=== PATIENT | male | born 1960 | race Hispanic/Latino ===

== ENCOUNTER 2019-12-29 11:33 | Observation (INO) | payer OTHER ==
[~2019-12-29] VITALS: Ht 175.3 cm; Wt 102.1 kg
--- NOTE | 2019-12-29 12:13 | Emergency Department Note ---
History of Present Illnes History of Present Illness Chief Complaint: COVID PUI History of Present Illness This is a 59 year old male with 4 mos of dyspnea and PRESCOTT . Historian: Patient Arrival Mode: Car Past Medical/Family History Physician Review I have reviewed the patient's past medical and family history. Any updates have been documented here. Past Medical History Recent Fever: No Clinical Suspicion of Infectio: No New/Unexplained Change in Ment: No Past Medical History: Hypertension, Diabetes, Hyperlipedemia, Chronic Back Pain Past Surgical History: Knee Replacement Social History Physically hurt or threatened: No Physical Exam Related Data Allergies: Coded Allergies: No Known Drug Allergies (Verified Allergy, Unknown, 04/28/09) Triage Vital Signs Vital Signs Date Time Temp Pulse Resp B/P (MAP) Pulse Ox O2 Delivery O2 Flow Rate FiO2 12/29/19 11:35 97.5 75 18 174/91 98 Room Air Physical Exam CONSTITUTIONAL HENT EYES NECK PULMONARY CARDIOVASCULAR GASTROINTESTINAL GENITOURINARY SKIN MUSCULOSKELETAL NEUROLOGICAL PSYCHOLOGICAL Results Imaging Imaging results reviewed: Yes Impressions [place] [address] Patient Name: CONNIE ALFARO MR #: [id number] : 1960 Age/Sex: 59/M Req #: [id number] Adm Physician: Ordered by: SIMONA ANTONIO DO Report #: [id number] Location: ER Room/Bed: Procedure: [id number] DX/CHEST SINGLE (PORTABLE) Exam Date: 12/29/19 Exam Time: 1225 REPORT STATUS: Signed TECHNIQUE: Frontal view of the chest. INDICATION: ^ERMD ORDER ^[id number] ^1225 ^Y COMPARISON: None DISCUSSION: Limited evaluation due to portable technique. Lines and hardware: None Heart and mediastinum: Cardiomediastinal silhouette and pulmonary vascularity are within normal limits within the limitations portable technique and low lung volumes. Trachea projects midline. Lungs and pleura: Low lung volumes limits evaluation. Negative for focal consolidation, large effusion or pneumothorax. Soft tissues and bones: No acute abnormality. IMPRESSION: Limited evaluation due to low lung volumes and technique. Negative for acute intrathoracic process. Signed by: Isabel Cortes MD on 12/29/2019 12:43 PM Dictated By: ISABEL CORTES MD 1243 Transcribed By: LUIZA on 12/29/19 1243 COPY TO: SIMONA ANTONIO DO~ Procedures 12 Lead ECG Interpretation ECG Interpretation : ECG: ECG 1 Imaging Technologist: Interpreted by ED physician Date: Dec 29, 2019 Time: 18:57 Prior ECG tracings: reviewed Rhythm: sinus rhythm Rate: normal BPM: 84 QRS axis: normal ST segments normal: Yes T waves normal: Yes Clinical Impression: normal ECG Assessment & Plan Medical Decision Making MDM Diff Dx : CHF, PNA, ACS, COVID-19 infection Last Vital Signs Date Time Temp Pulse Resp B/P (MAP) Pulse Ox O2 Delivery O2 Flow Rate FiO2 12/29/19 11:35 97.5 75 18 174/91 98 Room Air SIMONA ANTONIO DO Dec 29, 2019 12:13
[2019-12-29] MEDS ORDERED: ASPIRIN 81 MG CHEW TAB PO ONE ×2 (12:15→15:00)
--- NOTE | 2019-12-29 12:46 | Diagnostic Imaging Report ---
TECHNIQUE: Frontal view of the chest. INDICATION: ^ERMD ORDER ^[id number] ^1225 ^Y COMPARISON: None DISCUSSION: Limited evaluation due to portable technique. Lines and hardware: None Heart and mediastinum: Cardiomediastinal silhouette and pulmonary vascularity are within normal limits within the limitations portable technique and low lung volumes. Trachea projects midline. Lungs and pleura: Low lung volumes limits evaluation. Negative for focal consolidation, large effusion or pneumothorax. Soft tissues and bones: No acute abnormality. IMPRESSION: Limited evaluation due to low lung volumes and technique. Negative for acute intrathoracic process. Signed by: Modesto Cortes MD on 12/29/2019 12:43 PM
[2019-12-29 12:58] LABS: BASOPHILS % 0.4 % (0.0-1.0); EOSINOPHILS # (AUTO) 0.1 (0.0-0.4); EOSINOPHILS % 1.3 % (0.0-6.0); HEMATOCRIT 47.8 % (38.2-49.6); LYMPHOCYTES # (AUTO) 1.9 (1.0-3.2); LYMPHOCYTES % 24.6 % (18.0-39.1); MEAN CORPUSCULAR HEMOGLOBIN 30.6 pg (28-32); MEAN CORPUSCULAR HGB CONC 33.5 g/dL (31-35); MEAN CORPUSCULAR VOLUME 91.4 fL (81-99); MONOCYTES # (AUTO) 0.5 (0.2-0.8); MONOCYTES % 6.9 % (4.4-11.3); NEUTROPHILS # (AUTO) 5.1 (2.1-6.9); NEUTROPHILS % 66.1 % (38.7-80.0); PLATELET COUNT 226 x10e3/uL (140-360); RED BLOOD COUNT 5.23 x10e6/uL (4.3-5.7); RED CELL DISTRIBUTION WIDTH 12.7 % (11.7-14.4)
[2019-12-29 13:23] LABS: ALANINE AMINOTRANSFERASE 36 IU/L (0-55); ALBUMIN 4.7 g/dL (3.5-5.0); ALBUMIN/GLOBULIN RATIO 1.5 (0.8-2.0); ALKALINE PHOSPHATASE 36 IU/L (40-150); ANION GAP 12.8 mmol/L (8-16); BLOOD UREA NITROGEN 19 mg/dL (7-26); BUN/CREATININE RATIO 16 (6-25); CALCIUM 9.2 mg/dL (8.4-10.2); CARBON DIOXIDE 25 mmol/L (22-29); CHLORIDE 106 mmol/L (98-107); CREATINE KINASE 93 IU/L (30-200); CREATININE, SERUM 1.17 mg/dL (0.72-1.25); EST GLOMERULAR FILTRATION RATE > 60 ML/MIN (60-); GLUCOSE 149 mg/dL (74-118); POTASSIUM 3.8 mmol/L (3.5-5.1); SODIUM 140 mmol/L (136-145)
[2019-12-29] MEDS ORDERED: ENOXAPARIN SODIUM INJ 100 MG/ML SYR SC STA (14:44)
[2019-12-29] MEDS ORDERED: MORPHINE SULFATE 2 MG/ML SYR 1ML IV PRN (15:00)
[2019-12-29] MEDS ORDERED: ONDANSETRON HCL INJ 2MG/ML 2ML 2 MG/ML VIAL IV PRN ×2 (15:00→16:00)
--- NOTE | 2019-12-29 15:12 | Diagnostic Imaging Report ---
EXAMINATION: CT of the chest with contrast, PE protocol. TECHNIQUE: Spiral CT images of the chest were performed from the lung apices through the level of the adrenal glands after the IV administration of 100 cc of Omnipaque 370. Thin section reconstructions were obtained with special concentration on the pulmonary arteries. Coronal and sagittal reformatted images were also performed COMPARISON: Portable chest 12/29/2019 CLINICAL HISTORY:Shortness of breath for 4 months DISCUSSION: Lungs: Filling defects are noted in multiple segmental and subsegmental branches of the right upper (series 2, image 31), right middle (series 2, image 44), right lower (series 2, image 47), left upper (series 2, image 37 and sagittal image 108), and left lower (series 2, image 46 and 60) lobes. No saddle embolus. No filling defects are noted within the main right or left pulmonary arteries. Linear opacities in the anteromedial right upper lobe (series 3, image 35), right lower lobe (series 3, image 45), and left lower lobe (series 3, image 76), which may represent subsegmental atelectasis or scarring. No consolidation, or pulmonary infarcts. 4-5 mm pulmonary nodule in the lateral right middle lobe (series 3, image 44). No other pulmonary nodules. Airways: Airways are clear, without other bronchial lesions. Pleura: <There is no evidence of pleural effusion or pneumothorax.> Heart and mediastinum: Thyroid is unremarkable. Heart size is normal. No pericardial effusion. Atherosclerotic calcification of the coronary arteries. 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 The right carotid, left carotid and left subclavian arteries normally arise from the aortic arch. Lymph nodes: No mediastinal, hilar or axillary adenopathy. Abdomen: Visualized portions of the liver show marked diffusely decreased attenuation consistent with diffuse steatosis. No focal lesions. Visualized spleen, pancreas and bowel are grossly unremarkable. Cholecystectomy clips. The adrenal glands are not visualized. There is a partially visualized fat and soft tissue complex mass in the expected location of the right adrenal gland which measures approximately 10.4 x 9.5 cm (series 2, image 106). An approximately 3.4 x 3.0 cm well-circumscribed predominantly fat-containing mass is noted in the expected location of the left adrenal gland (series 2, image 105). Bones and soft tissues: No aggressive lytic or suspicious focal sclerotic lesions. Mildly degenerated discs in the thoracic spine. Deformity of the posterior aspect of the right ninth, 10th and 11th ribs consistent with healed fractures (series 2, images 73, 86 and 99). Soft tissues are grossly unremarkable. IMPRESSION: 1. Multiple segmental and subsegmental pulmonary emboli in the right upper, right middle, right lower, left upper and left lower lobes. No saddle emboli. 2. Nonspecific 4-5 mm pulmonary nodule in the lateral right middle lobe. No other pulmonary nodules or masses. 3. Findings in the expected location of bilateral adrenal glands are highly suspicious for myelolipomas. A less likely consideration includes retroperitoneal liposarcoma. Recommend contrast-enhanced CT abdomen and pelvis for further evaluation. 4. Diffuse hepatic steatosis. 5. 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 Correlate for dysphagia 6. Findings discussed with Dr. Johnson 12/29/2019 at 1445 hours Signed by: Dr. Vick Campbell M.D. on 12/29/2019 3:08 PM
[2019-12-29] MEDS ORDERED: MORPHINE SULFATE INJ 4 MG/ML INJ 1ML IV PRN (15:15)
--- OUTSIDE RECORDS SUMMARY | 2019-12-29 15:19 | XMS REPORT | Clinical Summary ---
Author Author [facility] Organization [facility] Address Unknown Phone Unavailable Care Team Providers Care Travel Registered Nurse Icu Name Role Phone PCP Unavailable Allergies Comments Active Allergy Reactions Severity Noted Date No Known Drug Allergies 04/22/2012 Medications End Date Status Medication Sig Dispensed Refills Start Date Active insulin 70/30 NPH - Inject 30 0 REGULAR (HUMULIN 70/30) Units 100 unit/mL injection subcutaneousl y 2 times daily (before meals). Active LOVASTATIN OR Take by 0 mouth. Active blood glucose meter Use as 1 Kit 0 (PRECISION directed. 3 XTRA)Indications: Diabetes mellitus Active LANCETSIndications: Check glucose 1 Box 11 Diabetes mellitus 2-3 times a 3 day Active glucose blood test Check glucose 1 Box 11 04/22 (PRECISION XTRA) 2-3 times per 3 stripIndications: day Diabetes mellitus Active ibuprofen (MOTRIN) 800 mg Take 1 tablet 12 tablet 0 tabletIndications: Acute by mouth 6 pain of right knee every 8 hours as needed for Pain. Active traMADol (ULTRAM) 50 mg Take 1 tablet 12 tablet 0 tabletIndications: Acute by mouth 6 pain of right knee every 8 hours as needed for Pain. Active metFORMIN (GLUCOPHAGE) Take 2 120 tablet 0 500 mg tabletIndications: tablets by 6 Acute pain of right knee mouth 2 times daily (with meals). Active lisinopril-hydrochlorothi Take 1 tablet 30 tablet 0 azide (PRINZIDE, by mouth 6 ZESTORETIC) 20-25 mg per daily. tabletIndications: Acute pain of right knee Active glipiZIDE (GLUCOTROL) 5 Take 1 tablet 60 tablet 0 mg tabletIndications: by mouth 2 6 Medication refill times daily (before meals). Active Problems Problem Noted Date Acute pain of right knee 08/12/2015 Diabetes mellitus Hypertension Hyperlipidemia Family History Medical History Relation Name Comments Arthritis Father Diabetes Father Heart Father Hypertension Father Stroke Father Relation Name Status Comments Brother Alive 7 Father Mother Alive Sister Alive 5 Social History Date Tobacco Use Types Packs/Day Years Used Passive Smoke Exposure - 10 Never Smoker Drinks/Week oz/Week Comments Alcohol Use Not Asked Sex Assigned at Date Recorded Not on file Industry Job Start Date Occupation Not on file Not on file Not on file Travel End Travel History Travel Start No recent travel history available. Last Filed Vital Signs Not on file Plan of Treatment Health Maintenance Due Date Last Done Comments DM HGBA1C (Yearly) 1960 DM Foot Exam (Yearly) 1980 DM Retinal Exam (Yearly) 1980 Colorectal Cancer Scrn 2012 Annual (FIT/FOBT) Age 50 to 75 IMM Influenza Seasonal 01/15/2020 01/15/2012Jan to June (>/= 19 yrs) Results Not on fileafter 12/28/2018 Insurance Type Payer Benefit Subscriber ID Effective Phone Address Plan / Dates Group [facility] SELF-PAY SELF-PAY xxxxxx 2015-3 [address] [place] [address] Guarantor Name Account Relation to Date of Phone Zackary wilson Address Type Patient STEWARTCONNIE MURPHY [place] Personal/F Head of 1960 [address] (Home) [place], [place] [address] (Self)
--- OUTSIDE RECORDS SUMMARY | 2019-12-29 15:19 | XMS REPORT | Continuity of Care Document ---
Author Author [facility] t Organization [facility] Address [address] [place] [phone] Phone Unavailable Care Team Providers Care Landfill Grader Name Role Phone DR ANDREA GERMAN Unavailable SIMONA ANTONIO Unavailable DR ANDREA GERMAN Unavailable Jeyson REYES Unavailable Problems Condition Name Condition Details Condition Category Status Onset Date Resolution Date Last Treatment Date Treating Clinician Comments Source Acute pain of right knee Acute pain of right knee Disease Acti ve 2015-08-12 00:00:00 [facility] Diabetes mellitus Diabetes mellitus Disease Active [facility] Hypertension Hypertension Disease Active [facility] Hyperlipidemia Hyperlipidemia Disease Active [facility] Allergies, Adverse Reactions, Alerts This patient has no known allergies or adverse reactions. Family History Family Member Diagnosis Comments Start Date Stop Date Source Natural father Arthritis [facility] father Heart [facility] Natural father Hypertension [facility] Natural father Stroke [facility] Social History Social Habit Start Date Stop Date Quantity Comments Source Sex Assigned At [facility] Alcohol intake 2012-04-22 00:00:00 2012-04-22 00:00:00 [facility] Smoking Status Start Date Stop Date Source Never smoker [facility] Medications Ordered Medication Name Filled Medication Name Start Date Stop Da te Current Medication? Ordering Clinician Indication Dosage Frequency Signature (SIG) Comments Components Source insulin 70/30 NPH - REGULAR (HUMULIN 70/30) 100 unit/mL inje ction 2015-08-12 09:20:08 Yes 30U Q.5D Inject 30 Units subcutaneously 2 times daily (before meals). [facility] LOVASTATIN OR 2015-08-12 09:20:08 Yes Take by mouth. [facility] ibuprofen (MOTRIN) 800 mg tablet 2015-08-12 00:00:00 Yes Acute pain of right knee 800mg Take 1 tablet by mouth every 8 hours as needed for Pain. [facility] traMADol (ULTRAM) 50 mg tablet 2015-08-12 00:00:00 Yes Acute pain of right knee 50mg Take 1 tablet by mouth every 8 hours as needed for Pain. [facility] metFORMIN (GLUCOPHAGE) 500 mg tablet 2015-08-12 00:00:00 Yes Acute pain of right knee 1000mg Take 2 tablets by mouth 2 times daily (with marc ls). [facility] lisinopril-hydrochlorothiazide (PRINZIDE, ZESTORETIC) 20-25 mg per tablet 2015-08-12 00:00:00 Yes Acute pain of right knee 1{tbl } QD Take 1 tablet by mouth daily. [facility] glipiZIDE (GLUCOTROL) 5 mg tablet 2015-08-12 00:00:00 Yes Medication refill 5mg Q.5D Take 1 tablet by mouth 2 times daily (before me als). [facility] blood glucose meter (PRECISION XTRA) 2012-04-22 00:00:00 Yes Diabetes mellitus Use as directed. [facility] ealth LANCETS 2012-04-22 00:00:00 Yes Diabetes mellitus Check glucose 2-3 times a day [facility] glucose blood test (PRECISION XTRA) strip 2012-04-22 00:00:0 0 Yes Diabetes mellitus Check glucose 2-3 times per day [facility] Procedures This patient has no known procedures. Plan of Care Planned Activity Planned Date Details Comments Source Future Scheduled Test 2020-01-15 00:00:00 IMM Influenza Seas onal Jan to June (>/= 19 yrs) [code = IMM Influenza Seasonal Jan to June (>/= 19 yrs)] [facility] Scheduled Test 2012 00:00:00 Screening for vamsi gnant neoplasm of colon (procedure) [code = 783391101] [facility] Scheduled Test 1980 00:00:00 DM Foot Exam (Year ly) [code = DM Foot Exam (Yearly)] [facility] Scheduled Test 1980 00:00:00 DM Retinal Exam (Y early) [code = DM Retinal Exam (Yearly)] [facility] Scheduled Test 1962 00:00:00 Hemoglobin A1c marc surement (procedure) [code = 10189481] [facility] Encounters Start Date/Time End Date/Time Encounter Type Admission Type [facility] Facility Care Department Encounter ID Source 2017-12-13 13:30:00 Inpatient ANDREA [facility] [id number] [facility] Results Test Description Test Time Test Comments Results Result Comments Source CT CHEST W 2019-12-29 14:42:00 [facility] [address] [address] Patient Name: CONNIE STEWART MR #: [id number] : 1960 Age/Sex: 59/M Req #: [id number] Adm Physician: Ordered by: SIMONA ANTONIO DO Report #: [id number] Location: ER Room/Bed: Procedure: [id number] CT/CT CHEST W Exam Date: 12/29/19 Exam Time: 1419 REPORT STATUS: Signed EXAMINATION: CT of the chest with contrast, PE protocol. TECHNIQUE: Spiral CT images of the chest were performed from the lung apices through the level of the adrenal glands after the IV administration of 100 cc of Omnipaque 370. Thin section reconstructions were obtained with special concentration on the pulmonary arteries. Coronal and sagittal reformatted images were also performed COMPARISON: Portable chest 12/29/2019 CLINICAL HISTORY:Shortness of breath for 4 months DISCUSSION: Lungs: Filling defects are noted in multiple segmental and subsegmental branches of the right upper (series 2, image 31), right middle (series 2, image 44), right lower (series 2, image 47), left upper (series 2, image 37 and sagittal image 108), and left lower (series 2, image 46 and 60) lobes. No saddle embolus. No filling defects are noted within the main right or left pulmonary arteries. Linear opacities in the anteromedial right upper lobe (series 3, image 35), right lower lobe (series 3, image 45), and left lower lobe (series 3, image 76), which may represent subsegmental atelectasis or scarring. No consolidation, or pulmonary infarcts. 4-5 mm pulmonary nodule in the lateral right middle lobe (series 3, image 44). No other p ulmonary nodules. Airways: Airways are clear, without other bronchial lesions. Pleura: <There is no evidence of pleural effusion or pneumothorax.> Heart and mediastinum: Thyroid is unremarkable. Heart size is normal. No pericardial effusion. Atherosclerotic calcification of the coronary arteries. 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 The right carotid, left carotid and left subclavian arteries normally arise from the aortic arch. Lymph nodes: No mediastinal, hilar or axillary adenopathy. Abdomen: Visualized portions of the liver show marked diffusely decreased attenuation consistent with diffuse steatosis. No focal lesions. Visualized spleen, pancreas and bowel are grossly unremarkable. Cholecystectomy clips. The adrenal glands are not visualized. There is a partially visualized fat and soft tissue complex mass in the expected location of the right adrenal gland which measures approximately 10.4 x 9.5 cm (series 2, image 106). An approximately 3.4 x 3.0 cm well-circumscribed predominantly fat-containing mass is noted in the expected location of the left adrenal gland (series 2, image 105). Bones and soft tissues: No aggressive lytic or suspicious focal sclerotic lesions. Mildly degenerated discs in the thoracic spine. Deformity of the posterior aspect of the right ninth, 10th and 11th ribs consistent with healed fractures (series 2, images 73, 86 and 99). Soft tissues are grossly unremarkable. IMPRESSION: 1. Multiple segmental and subsegmental pulmonary emboli in the right upper, right middle, right lower, left upper and left lower lobes. No saddle emboli. 2. Nonspecific 4-5 mm pulmonary nodule in the lateral right middle lobe. No other pulmonary nodules or masses. 3. Findings in the expected location of bilateral adrenal glands are highly suspicious for myelolipomas. A less likely consideration includes retroperitoneal liposarcoma. Recommend contrast- enhanced CT abdomen and pelvis for further evaluation. 4. Diffuse hepatic steatosis. 5. 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 Correlate for dysphagia 6. Findings discussed with Dr. Antonio 12/29/2019 at 1445 hours Signed by: Dr. Aiyana Campbell M.D. on 12/29/2019 3:08 PM Dictated By: AIYANA CAMPBELL MD 1508 Transcribed By: LUIZA on 12/29/19 150 COPY TO: SIMONA ANTONIO DO CHEST SINGLE (PORTABLE) 2019-12-29 12:42:00 [place] [address] Patient Name: CONNIE STEWART MR #: [id number] : 1960 Age/Sex: 59/M Req #: [id number] Adm Physician: Ordered by: SIMONA ANTONIO DO Report #: [id number] Location: ER Room/Bed: Procedure: [id number] DX/CHEST SINGLE (PORTABLE) Exam Date: 12/29/19 Exam Time: 1225 REPORT STATUS: Signed TECHNIQUE: Frontal view of the chest. INDICATION: ERMD ORDER [id number] 1225 Y COMPARISON: None DISCUSSION: Limited evaluation due to portable technique. Lines and hardware: None Heart and mediastinum: Cardiomediastinal silhouette and pulmonary vascularity are within normal limits within the limitations portable technique and low lung volumes. Trachea projects midline. Lungs and pleura: Low lung volumes limits evaluation. Negative for focal consolidation, large effusion or pneumothorax. Soft tissues and bones: No acute abnormality. IMPRESSION: Limited evaluation due to low lung volumes and technique. Negative for acute intrathoracic process. Signed by: Isabel Cortes MD on 12/29/2019 12:43 PM Dictated By: ISABEL CORTES MD 1243 Transcribed By: LUIZA on 12/29/19 1243 COPY TO: SIMONA ANTONIO DO
--- NOTE | 2019-12-29 15:45 | NUR ---
Patient awake and alert, no chest pain or SOB at this time. VSS
[2019-12-29] MEDS ORDERED: CLONIDINE HCL 0.2 MG TAB PO PRN (16:00)
[2019-12-29] MEDS: SODIUM CHLORIDE 0.9% 1000ML 1,000 ML IV SCH ×2 (16:09→23:00)
[2019-12-29] MEDS ORDERED: IOPAMIDOL 370 MG/ML 200 ML INFUS..BTL INJ ONE (16:22)
[2019-12-29] MEDS ORDERED: SODIUM CHLORIDE 0.9% 50ML 50 ML ONE (16:22)
--- NOTE | 2019-12-29 18:20 | NUR ---
Food tray serve at pt bedside.
[2019-12-29 19:43] LABS: CREATINE KINASE MB 1.8 ng/mL (0-5.0)
--- NOTE | 2019-12-29 20:30 | NUR ---
Patient resting watching tv, no complaint of chest pain or SOB.
[2019-12-29] MEDS ORDERED: ZOLPIDEM TARTRATE 5 MG TAB PO PRN (21:00)
--- NOTE | 2019-12-29 21:17 | Consultation ---
DATE OF CONSULTATION: Pulmonary Critical Care Consultation CHIEF COMPLAINT: Dyspnea and abnormal chest CT. HISTORY OF PRESENT ILLNESS: The patient is a 59-year-old man with a history of dyspnea for over a year. He reports the dyspnea being worse for the past week or so. He denies any chest pain or cough. He has had no fevers. He came to the emergency department, had a CT scan that showed multiple pulmonary emboli in the lobar arteries of the right lung as well as some pulmonary embolism in the lobar arteries of the left lower lobe and left upper lobe. He denies any chest pain. He denies any prior pulmonary emboli. He has had no recent surgery and no recent travel. PAST SURGICAL HISTORY: History of knee surgery in 2007. PAST MEDICAL HISTORY: 1. Vague history of a stress test 15 years ago. No other cardiac disease. 2. No prior history of pulmonary emboli or deep vein thrombosis. 3. No prior history of asthma or respiratory problems. ALLERGIES: NO KNOWN DRUG ALLERGIES. SOCIAL HISTORY: The patient denies any history of smoking or drinking. FAMILY HISTORY: Noncontributory. REVIEW OF SYSTEMS: The patient is afebrile. The patient has no headache. He has no neck pain. He is not complaining of any chest pain. He denies any difficulty breathing or wheezing. He is not having any abdominal pain. There is no nausea or vomiting. He has no leg edema. PHYSICAL EXAMINATION: VITAL SIGNS: The patient is afebrile. The blood pressure is 168/90 and the saturation is 96%. The pulse is 80 and the respiratory rate is 19. HEENT: No facial swelling or erythema. LYMPHATIC: No submandibular, cervical, or supraclavicular adenopathy. CARDIAC: Regular rate and rhythm with normal S1, S2. LUNGS: Auscultation of lungs reveals rhonchorous breath sounds bilaterally. There is no wheezing. ABDOMEN: Soft, nontender. There is no rebound or guarding. EXTREMITIES: No leg edema or calf tenderness. There is no cyanosis OR clubbing. SKIN: No rashes. NEUROLOGICAL: No focal abnormalities. LABORATORY DATA: BUN to creatinine ratio is 19 to 1.17. Other electrolytes are within normal limits. White blood cell count is 7.65, hemoglobin is 16 and the platelet count is 226. RADIOGRAPHIC DATA: Chest CT shows multiple segmental and subsegmental pulmonary emboli in the right and left lung. There are bilateral enlarged adrenal glands as well as some hepatic steatosis. IMPRESSION: 1. Pulmonary emboli. 2. Abnormal adrenal glands. 3. Steatohepatitis. 4. Hypertension. 5. Acute kidney injury. PLAN: 1. The patient has been started on Lovenox at 1 mg/kg q.12h. 2. Echocardiogram urgently to evaluate right ventricular function. 3. Judicious use of IV fluids. 4. Thrombophilia panel. 5. Evaluation of adrenal gland abnormalities. Chris Nicholson MD [facility]/MODL /[id number]
--- NOTE | 2019-12-29 21:37 | Consultation ---
DATE OF CONSULTATION: Cardiac Consultation REASON FOR CONSULTATION: Pulmonary embolism, chest pain, shortness of breath. HISTORY OF PRESENT ILLNESS: A 59-year-old gentleman, very poorly historian. He is known with longstanding history of arthritis. In fact, he had a right knee replacement many years ago. He does have cervical and lumbar pain. He is on pain management with pain specialist. He is on hydrocodone and other p.r.n. medications. Furthermore, he is diabetic for the last 20 years and hypertensive. For the last week or so, he is unable to breath. This problem becoming progressively worse. He came to the emergency room. Workup revealed the presence of bilateral pulmonary emboli. The patient given Lovenox by ER team and Cardiac consultation is obtained for the shortness of breath and now diagnosed with pulmonary embolism. He denied having angina. His activities are limited, although he stay all the day on his feet. Surprisingly, the patient claim he is very ambulatory. REVIEW OF SYSTEMS: GENERAL: No fever. No chills. HEENT: No vision problem. No hearing problem. PULMONARY: Progressive worsening shortness of breath over 6 months, worse in the last week and he is unable to catch any breath and unable to do his daily life activities. No pleuritic chest pain. No cough. No hemoptysis. CARDIAC: Surprisingly no angina over the years, easy fatigability, progressive worsening shortness of breath. No orthopnea. No paroxysmal nocturnal dyspnea. GI: No hematemesis. No melena. : No hematuria. No dysuria. MUSCULOSKELETAL: Cervical spine pain, low back pain, right knee pain, on pain management. ENDOCRINE: The patient is diabetic for 20 years. HEMATOLOGY: No easy bruising or bleeding. SOCIAL HISTORY: He is . He is nonsmoker, not alcohol drinker. 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. He is very physically active as per the patient. HOME MEDICATIONS: Include: 1. Hydrocodone 1 tablet q.i.d. 2. Metformin 1000 mg twice a day. 3. Trulicity 1.5 mg every week. 4. Losartan hydrochlorothiazide 50/12.5 one tablet a day. 5. Lyrica 200 mg t.i.d. 6. Fenofibrate 145 mg a day. ALLERGIES: NONE. PAST MEDICAL HISTORY: 1. Hypertension since year 1999. 2. Diabetes mellitus since year 1999. 3. Right knee replacement. 4. Right wrist fracture. 5. Chronic lumbar spine as well as cervical spine pain. FAMILY HISTORY: No family history of premature coronary artery disease. PHYSICAL EXAMINATION: GENERAL: Obese gentleman, in no acute distress. VITAL SIGNS: Height of 5 feet 9 inches, weight of 225 pounds, blood pressure 130/80, heart rate of 90, respiratory rate of 18. HEENT: Pupils are equal and reactive. NECK: No elevation of jugular venous pulsation. No bruit. CHEST: Clear to auscultation and percussion. HEART: PMI 5th left intercostal space. Normal first and second heart sound. ABDOMEN: Soft with good bowel sounds. EXTREMITIES: There is big scar over the right knee. There is deformity of the right knee. The right calf definitely is tender and more muscular, but as per the patient, he states his knee surgery is having problem. Good distal pulses. NEUROLOGIC: Able to move his extremities. LABORATORY DATA: Sodium of 140, potassium 3.8, BUN of 19, creatinine of 1.2, glucose of 149. Cardiac enzymes are normal. BNP of less than 5. White blood cell count of 7.7, hemoglobin 16, hematocrit 48%, platelet count of 226,000. EKG showing normal sinus rhythm. No right ventricular strain pattern. X-ray CT scan showing multiple pulmonary emboli primary report. In the right upper, middle, lower, left upper and left lower lobe. No saddle emboli. IMPRESSION AND PLAN: 1. Shortness of breath, acute, most likely secondary to pulmonary emboli, etiology is unknown because the patient claims he is very physically active, then malignancy needs to be sought of. 2. Progressive worsening shortness of breath over the last 6 months. Doubt repeated pulmonary emboli because that is a chronic problem. This pinpoint to coronary artery disease in gentleman with several cardiac risk factors. 3. Hypertension for 20 years. 4. Diabetes mellitus for 20 years. 5. The right calf is more muscular and more tender, but the patient claims he is having this problem since his knee surgery. Regardless, a venous Doppler should be done. 6. Diabetes mellitus. 7. Chronic pain syndrome. From a cardiac point of view, anticoagulation and treatment of the PE need to be done. Differential diagnosis of PE needs to be done. Venous Doppler study of the lower extremities need to be done. Labs are ordered. Studies are ordered. Once this problem is resolved, the patient definitely should have cardiac workup as evident by his progressive worsening shortness of breath over the last 6 months to evaluate for coronary artery disease. Case discussed and explained. The patient is seen in the emergency room. This was lengthy visit for more than 1 hour with a lot of questioning and discussion and discussed with staff. Orders are written. MD ALEJANDRA Colbert/RHONDA /[id number]
[2019-12-29 23:00] VITALS: BP 157/100
--- NOTE | 2019-12-29 23:00 | NUR ---
Received patient hemodynamically stable, no complaints raised
[2019-12-29 23:15] VITALS: BP 157/100
[2019-12-29 23:25] VITALS: BP 157/100
[2019-12-30] VITALS (8 sets, daily range): BP systolic 125–160; BP diastolic 76–115
[2019-12-30] MEDS ORDERED: OXYCODONE HCL IR 5 MG TAB PO PRN (02:15)
[2019-12-30] MEDS ORDERED: OXYCODONE/ACETAMINOPHEN 5-325 1 EACH TABLET PO STA (02:15)
[2019-12-30] MEDS ORDERED: PERCOCET 10-321 EACH PO (02:41)
[2019-12-30] MEDS ORDERED: LYRICA100 MG PO (02:41)
[2019-12-30] MEDS ORDERED: TRULICITY1.5 MG/0.5 (02:48)
[2019-12-30] MEDS ORDERED: METFORMIN HCL500 MG PO (02:48)
[2019-12-30] MEDS: ENOXAPARIN SODIUM INJ 100 MG/ML SYR SC SCH ×2 (04:00→16:06)
[2019-12-30] MEDS ORDERED: LOSARTAN-HCTZ1 EACH PO (04:13)
[2019-12-30 05:11] LABS: BASOPHILS # (AUTO) 0.1 (0.0-0.1); BASOPHILS % 0.7 % (0.0-1.0); EOSINOPHILS # (AUTO) 0.1 (0.0-0.4); EOSINOPHILS % 1.7 % (0.0-6.0); HEMATOCRIT 44.7 % (38.2-49.6); LYMPHOCYTES # (AUTO) 1.9 (1.0-3.2); LYMPHOCYTES % 25.2 % (18.0-39.1); MEAN CORPUSCULAR HEMOGLOBIN 30.6 pg (28-32); MEAN CORPUSCULAR HGB CONC 33.6 g/dL (31-35); MEAN CORPUSCULAR VOLUME 91.2 fL (81-99); MONOCYTES # (AUTO) 0.6 (0.2-0.8); MONOCYTES % 8.2 % (4.4-11.3); NEUTROPHILS # (AUTO) 4.8 (2.1-6.9); NEUTROPHILS % 63.5 % (38.7-80.0); PLATELET COUNT 207 x10e3/uL (140-360); RED CELL DISTRIBUTION WIDTH 12.7 % (11.7-14.4)
[2019-12-30 05:33] LABS: ALANINE AMINOTRANSFERASE 29 IU/L (0-55); ALBUMIN/GLOBULIN RATIO 1.4 (0.8-2.0); ALKALINE PHOSPHATASE 38 IU/L (40-150); ANION GAP 13.8 mmol/L (8-16); BLOOD UREA NITROGEN 18 mg/dL (7-26); BUN/CREATININE RATIO 15 (6-25); CALCIUM 8.7 mg/dL (8.4-10.2); CARBON DIOXIDE 23 mmol/L (22-29); CHLORIDE 107 mmol/L (98-107); CREATININE, SERUM 1.21 mg/dL (0.72-1.25); EST GLOMERULAR FILTRATION RATE > 60 ML/MIN (60-); GLUCOSE 184 mg/dL (74-118); POTASSIUM 3.8 mmol/L (3.5-5.1); SODIUM 140 mmol/L (136-145)
[2019-12-30] MEDS ORDERED: DOCUSATE SODIUM 100 MG CAP PO PRN (06:15)
[2019-12-30] MEDS ORDERED: ACETAMINOPHEN 325 MG TAB PO PRN (06:15)
[2019-12-30] MEDS ORDERED: DEXTROSE 50% SYRINGE 50 ML IV PRN (06:15)
[2019-12-30 06:20] LABS: CREATINE KINASE MB 1.7 ng/mL (0-5.0)
--- NOTE | 2019-12-30 06:20 | NUR ---
H&P cc; sob HPI: 59yoM, PCP ,. developed sob for 6 months; now worse; no travel in past year; no hx cancer; no family hx cancer. Never had colonoscopy. 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
[2019-12-30] MEDS: OXYCODONE/ACETAMINOPHEN 5-325 1 EACH TABLET PO SCH ×3 (06:36→21:34)
[2019-12-30] MEDS: OXYCODONE HCL IR 5 MG TAB PO SCH ×3 (06:37→21:34)
[2019-12-30 06:38] LABS: CHOL/HDL RATIO 6.7 (3.9-4.7); CHOLESTEROL 141 MD/DL (0-199); HDL CHOLESTEROL 21 MG/DL (40-60); TRIGLYCERIDES 595 MG/DL (0-149)
[2019-12-30 07:02] LABS: THYROID STIMULATING HORMONE 0.983 uIU/mL (0.350-4.940)
[2019-12-30] MEDS: SODIUM CHLORIDE 0.9% 1000ML 1,000 ML IV SCH (08:00)
[2019-12-30] MEDS: FAMOTIDINE 20 MG TAB PO SCH ×2 (08:00→16:07)
[2019-12-30] MEDS: INSULIN REGULAR, HUMAN 100 UNIT/1 ML 3ML VIAL SQ SCH ×4 (08:00→21:33)
--- NOTE | 2019-12-30 10:26 | Progress Note ---
DATE: SUBJECTIVE: The patient has less dyspnea this morning. He is on nasal cannula. He expressed concern about his blood pressure medications. He expressed concern about the temperature at the breakfast this morning. PHYSICAL EXAMINATION: VITAL SIGNS: Blood pressure is 138/94 and the saturation is 98% on 2 L. The pulse is 92. HEENT: Shows no facial swelling or erythema. LYMPHATIC: Shows no submandibular, cervical, or supraclavicular adenopathy. CARDIAC: Reveals regular rate and rhythm with normal S1 and S2. LUNGS: Auscultation of lungs reveals rhonchorous breath sounds bilaterally. There is no wheezing. ABDOMEN: Soft and nontender. There is no rebound or guarding. EXTREMITIES: Show no leg edema or calf tenderness. There is no cyanosis or clubbing. SKIN: Shows no rashes. IMPRESSION: 1. Pulmonary emboli. 2. Abnormal adrenal glands. 3. Diabetes. 4. Chronic renal insufficiency, stage 4. 5. Hypertension. PLAN: 1. Continue Lovenox. The patient will need evaluation for underlying causes of pulmonary emboli. A thrombophilia panel has been ordered. The patient will also need evaluation to rule out any "malignancy.". 2. Monitor and control blood sugars. 3. Monitor and control blood pressure. 4. Evaluation for adrenal gland abnormalities. Chris Nicholson MD [facility] /[id number]
[2019-12-30] MEDS ORDERED: IOPAMIDOL 370 MG/ML 200 ML INFUS..BTL INJ ONE (15:33)
[2019-12-30] MEDS ORDERED: SODIUM CHLORIDE 0.9% 50ML 50 ML ONE (15:33)
--- NOTE | 2019-12-30 16:16 | Diagnostic Imaging Report ---
CT of the abdomen and pelvis with contrast TECHNIQUE: CT of the abdomen and pelvis WITHOUT and WITH intravenous contrast and WITHOUT oral contrast. Dose modulation, iterative reconstruction, and/or weight-based adjustment of the mA/kV was utilized to reduce the radiation dose to as low as reasonably achievable. Adrenal protocol was performed with precontrast, arterial phase and delayed phase imaging. IV CONTRAST: 100 mL of Isovue-370 ORAL CONTRAST: None RADIATION DOSE: Total DLP: 1772 mGy*cm COMPLICATIONS: None INDICATION: ^ADRENAL MASSESS ^[id number] ^1430 ^Y. COMPARISON: None. FINDINGS: LOWER THORAX: Basilar atelectasis is noted. HEPATOBILIARY: Liver is diffusely hypoattenuating. There is a focal area of enhancement within the left hepatic lobe (image 29 of arterial phase imaging, image 59 of noncontrast imaging and image 54 of the late-phase imaging) which demonstrates mild hyperattenuating appearance on noncontrast imaging. This measures up to 2.7 cm on arterial imaging. No other suspicious lesion is identified. Gallbladder is surgically absent. No biliary ductal dilatation. SPLEEN: No splenomegaly. PANCREAS: No focal masses or ductal dilatation. ADRENALS: In the region of the right adrenal gland there is a predominantly fat-containing lobular well-circumscribed mass measuring approximately 10.5 x 7.8 x 8.5 cm (AP by transverse by CC). The inferior components are predominantly fatty while the superior component is demonstrated more stranding and nodular densities which do not demonstrate significant postcontrast enhancement. Mass extends to the hepatic capsule and inferiorly to the superior aspect of the kidney. Superiorly it extends to the region of the hepatic vein confluence. Within the left adrenal gland there is a fat-containing well-circumscribed lesion superiorly measuring approximately 3.5 x 2.8 x 3.7 cm. No suspicious features are identified. KIDNEYS/URETERS: No hydronephrosis, stones, or masses. Symmetric excretion of contrast and enhancement is noted. Ureters are not dilated. Negative for upper urinary tract intraluminal filling defect. PELVIC ORGANS/BLADDER: Bladder is unremarkable with dependent pooling of contrast. Prostate is enlarged with mass effect on the posterior bladder wall. PERITONEUM/RETROPERITONEUM: No free air or fluid. LYMPH NODES: No lymphadenopathy. VESSELS: Unremarkable. GI TRACT: Visualized bowel loops are not dilated. No surrounding inflammatory changes are identified. Stomach is decompressed limiting evaluation. Portions of the colon are decompressed limiting evaluation. Numerous diverticula are identified sigmoid colon without surrounding inflammatory changes. BONES AND SOFT TISSUES: Healed right posterior/inferior rib deformities are noted. No suspicious lytic or blastic lesion is identified. Probable bone island identified within T9 vertebral body. Severe degenerative changes are noted within the lumbar spine diffusely with disc space narrowing, vacuum phenomenon and posterior disc bulges. Facet arthropathy is also noted throughout the spine. Soft tissues are unremarkable. IMPRESSION: 1. 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 No suspicious enhancement is noted on arterial phase or delayed phase imaging. Given size recommend surgical evaluation. 2. There is also a 3.5 cm fat-containing left adrenal lesion which probably relates to an adenoma or additional myelolipoma. 3. There is ill-defined enhancement within the left hepatic lobe on arterial phase and delayed phase imaging. Finding is indeterminate by this exam. Consider nonemergent follow-up ultrasound to assess for correlate. Finding could represent a perfusion abnormality or possibly a flash filling hemangioma. Stable background of hepatic steatosis. Signed by: Modesto Cortes MD on 12/30/2019 4:13 PM
[2019-12-31] VITALS: BP 156/104
[2019-12-31 04:00] VITALS: BP 174/105
[2019-12-31] MEDS: ENOXAPARIN SODIUM INJ 100 MG/ML SYR SC SCH (04:23)
--- NOTE | 2019-12-31 06:07 | NUR ---
IM- progress note O/N see below ROS: no f/c/s/N/V/D/ORTIZ/cp/skin rash/confusion/dizziness/leg pain/vison chnages v/s revd PE tired appearing anicteric ns1s2 reduced BS soft nt nd no e/t skin dry flat affect a&ox3; hugo labs/meds revd A/P: 59yoM Pulmonary embolism B/L- AC; hematology eval Right lung nodule- 5mm; pulm to follow outpt Adrenal gland lesions B/L- unclear; possibly fatty lesion Hepatc steatosis- 1/2 portion sizes; Obesity- 1/2 portion sizes BMI 33- as above DM2- hab1c/lipids; ssi Prop: pepcid on AC Dispo: 9-16 Hba1c/LDL/TG 8.2---/595; HTG- use fenofibrate; continue AC for clot stabilization; plan on d/c tomorrow; SUSI KIM MD, PHD.
[2019-12-31] MEDS: OXYCODONE/ACETAMINOPHEN 5-325 1 EACH TABLET PO SCH (06:29)
[2019-12-31] MEDS: OXYCODONE HCL IR 5 MG TAB PO SCH (06:29)
[2019-12-31 07:49] VITALS: BP 157/97
[2019-12-31] MEDS: INSULIN REGULAR, HUMAN 100 UNIT/1 ML 3ML VIAL SQ SCH ×2 (08:45→12:12)
[2019-12-31] MEDS ORDERED: HYDROCHLOROTHIAZIDE 25 MG TAB PO SCH (09:00)
[2019-12-31] MEDS ORDERED: FENOFIBRATE 145 MG TAB PO SCH (09:00)
[2019-12-31] MEDS ORDERED: LOSARTAN POTASSIUM 100 MG TAB PO SCH (09:00)
[2019-12-31] MEDS: FAMOTIDINE 20 MG TAB PO SCH (09:10)
[2019-12-31 10:16] VITALS: BP 157/97
[2019-12-31 12:16] VITALS: BP 148/98
--- NOTE | 2019-12-31 14:39 | NUR ---
GAVE COUPON FOR [place], EXPLAINED HOW TO REGISTER THE CARE FOR 1 YEAR FREE AND ALSO ABOUT THE PRESCRIPTION ASSISTANCE PROGRAM. STATES HE UNDERSTANDS AND WILL CALL TO REGISTER. LET NURSE KNOW WHOM WAS SPEAKING WITH THE DR OFFICE TO GET CALLED IN TO PHARMACY.
--- NOTE | 2019-12-31 14:54 | NUR ---
CALLED [facility] AT [phone] SPOKE WITH LIAM WHO STATES PT'S COPAY FOR ELIQUIS IS 60.00 INFORMED PT OF COPAY GAVE HIM MY CARD WITH LIAM'S NAME
--- NOTE | 2019-12-31 16:00 | NUR ---
Patient discharged home verbalized understanding of d/c instructions.
[2019-12-31] MEDS ORDERED: APIXABAN 5 MG TABLET PO SCH (17:00)
[2019-12-31] MEDS ORDERED: ATORVASTATIN 20 MG TAB PO SCH (21:00)
--- NOTE | 2020-01-01 05:18 | NUR ---
D/C summary Principal dx: Pulmonary embolism B/L- AC; hematology eval Right lung nodule- 5mm; pulm to follow outpt Adrenal gland lesions B/L- unclear; possibly fatty lesion Hepatic steatosis- 1/2 portion sizes; HTG- start fibrate Secondary Dx: Obesity- 1/2 portion sizes BMI 33- as above DM2- hab1c/lipids; ssi Prop: pepcid on AC Dispo: 9-16 Hba1c/LDL/TG 8.2---/595; HTG- use fenofibrate; continue AC for clot stabilization; plan on d/c tomorrow; d/c home stable f/u 2 days d/c>35mins SUSI KIM MD, PHD.
== END 2019-12-31 15:55 | disposition home or self-care (01) ==
LOC: ER 11:43 → INTOOBSV 14:55 → ERHOLD 14:55 → IMCU 21:52
PROVIDERS: ADMIT Internal Medicine; ATTEND Internal Medicine
DX: I26.99 Other pulmonary embolism without acute cor pulmonale (principal); K75.81 Nonalcoholic steatohepatitis (NASH); N17.9 Acute kidney failure, unspecified; Z96.651 Presence of right artificial knee joint; G89.4 Chronic pain syndrome; R91.1 Solitary pulmonary nodule; E66.9 Obesity, unspecified; Z68.33 Body mass index [BMI] 33.0-33.9, adult; E27.9 Disorder of adrenal gland, unspecified; E11.22 Type 2 diabetes mellitus with diabetic chronic kidney disease; I12.9 Hypertensive chronic kidney disease with stage 1 through stage 4 chronic kidney disease, or unspecified chronic kidney disease; N18.4 Chronic kidney disease, stage 4 (severe); Z11.59 Encounter for screening for other viral diseases; Z79.84 Long term (current) use of oral hypoglycemic drugs
CPT/HCPCS: 36415 ×3; 71045; 71260; 74178; 80053 ×2; 80061; 81241; 81400; 82105; 82270; 82378; 82550 ×2; 82553 ×2; 82948 ×2; 83036; 83880; 84152; 84443; 84484 ×2; 85025 ×2; 85303; 85306; 86301; 93005 ×2; 93306; 93970; 96372; 99285; G0378 ×3; J1650 ×3; J1817; J7030 ×2; Q9967 ×2; U0002

== ENCOUNTER → 2021-05-10 | Day surgery (SDC) | payer BC ==
[2021-04-18 10:25] LABS: BASOPHILS % 0.5 % (0.0-1.0); EOSINOPHILS # (AUTO) 0.1 (0.0-0.4); EOSINOPHILS % 1.8 % (0.0-6.0); HEMATOCRIT 52.3 % (38.2-49.6); HEMOGLOBIN 16.8 g/dL (14.0-18.0); LYMPHOCYTES # (AUTO) 1.4 (1.0-3.2); LYMPHOCYTES % 22.5 % (18.0-39.1); MEAN CORPUSCULAR HEMOGLOBIN 30.7 pg (28-32); MEAN CORPUSCULAR HGB CONC 32.1 g/dL (31-35); MEAN CORPUSCULAR VOLUME 95.6 fL (81-99); MONOCYTES # (AUTO) 0.7 (0.2-0.8); MONOCYTES % 11.3 % (4.4-11.3); NEUTROPHILS # (AUTO) 3.9 (2.1-6.9); NEUTROPHILS % 63.4 % (38.7-80.0); PLATELET COUNT 154 x10e3/uL (140-360); RED BLOOD COUNT 5.47 x10e6/uL (4.3-5.7); RED CELL DISTRIBUTION WIDTH 13.2 % (11.7-14.4)
[~2021-05-10] MED LIST: ELIQUIS5 MG PO; FARXIGA10 MG PO; FENTANYL CITRATE/PF 100MCG/2 ML INJ ONE; GLUCOTROL10 MG PO; LANTUS 3ML100 UNITS/ SC; LIDOCAINE HCL 2% LOCAL INJ 5 ML SDV VIAL INJ ONE; LIPITOR10 MG PO; LOSARTAN-HCTZ1 EACH PO; LYRICA100 MG PO; METFORMIN HCL500 MG PO; MIDAZOLAM HCL 2 MG/2 ML VIAL ONE; PERCOCET 10-321 EACH PO; PHENYLEPHRINE HCL 1% 10 MG/ML VIAL ONE; PROPOFOL IV EMULSION 10 MG/ML 20 ML VIAL ONE; TRULICITY1.5 MG/0.5
[2021-05-10 10:25] VITALS: BP 113/83
== END | disposition home or self-care (01) ==
LOC: OR 07:00
PROVIDERS: ATTEND Internal Medicine Gastroenterology
DX: R19.5 Other fecal abnormalities (principal); D12.3 Benign neoplasm of transverse colon; D12.4 Benign neoplasm of descending colon; K29.50 Unspecified chronic gastritis without bleeding; K31.A0 Gastric intestinal metaplasia, unspecified; K44.9 Diaphragmatic hernia without obstruction or gangrene; K59.00 Constipation, unspecified; K57.30 Diverticulosis of large intestine without perforation or abscess without bleeding; K64.8 Other hemorrhoids; C22.9 Malignant neoplasm of liver, not specified as primary or secondary; E11.9 Type 2 diabetes mellitus without complications; I10 Essential (primary) hypertension; U07.1 COVID-19; H91.90 Unspecified hearing loss, unspecified ear; Z01.810 Encounter for preprocedural cardiovascular examination; Z01.812 Encounter for preprocedural laboratory examination; Z79.02 Long term (current) use of antithrombotics/antiplatelets; Z79.4 Long term (current) use of insulin; Z79.899 Other long term (current) drug therapy; Z68.34 Body mass index [BMI] 34.0-34.9, adult; Z86.711 Personal history of pulmonary embolism
CPT/HCPCS: 36415; 43239; 45384; 45385; 85025; 93005; J2001; J2250; J2370; J2704; J3010; U0002; 45378

== ENCOUNTER 2021-08-15 19:58 | Emergency (ER) | payer BC ==
[~2021-08-15] VITALS: Ht 172.7 cm; Wt 104.3 kg
[~2021-08-15 19:58] MED LIST changes: -FENTANYL CITRATE/PF 100MCG/2 ML INJ ONE; -LIDOCAINE HCL 2% LOCAL INJ 5 ML SDV VIAL INJ ONE; -MIDAZOLAM HCL 2 MG/2 ML VIAL ONE; -PHENYLEPHRINE HCL 1% 10 MG/ML VIAL ONE; -PROPOFOL IV EMULSION 10 MG/ML 20 ML VIAL ONE
[2021-08-15 20:51] LABS: BASOPHILS % 0.5 % (0.0-1.0); EOSINOPHILS # (AUTO) 0.1 (0.0-0.4); EOSINOPHILS % 1.4 % (0.0-6.0); HEMATOCRIT 50.5 % (38.2-49.6); HEMOGLOBIN 16.8 g/dL (14.0-18.0); LYMPHOCYTES # (AUTO) 1.4 (1.0-3.2); LYMPHOCYTES % 21.4 % (18.0-39.1); MEAN CORPUSCULAR HEMOGLOBIN 30.4 pg (28-32); MEAN CORPUSCULAR HGB CONC 33.3 g/dL (31-35); MEAN CORPUSCULAR VOLUME 91.5 fL (81-99); MONOCYTES # (AUTO) 0.6 (0.2-0.8); MONOCYTES % 9.5 % (4.4-11.3); NEUTROPHILS # (AUTO) 4.4 (2.1-6.9); NEUTROPHILS % 66.9 % (38.7-80.0); PLATELET COUNT 224 x10e3/uL (140-360); RED BLOOD COUNT 5.52 x10e6/uL (4.3-5.7); RED CELL DISTRIBUTION WIDTH 13.7 % (11.7-14.4)
[2021-08-15] MEDS ORDERED: KETOROLAC TROMETHAMINE 30 MG/ML VIAL IV STA (20:53)
[2021-08-15 21:15] LABS: ALBUMIN 3.8 g/dL (3.5-5.0); ANION GAP 14.9 mmol/L (8-16); CALCIUM 9.5 mg/dL (8.4-10.2); CREATININE, SERUM 1.55 mg/dL (0.72-1.25); POTASSIUM 3.9 mmol/L (3.5-5.1)
[2021-08-15] MEDS ORDERED: SODIUM CHLORIDE 0.9% 1000ML 1,000 ML IV STA (21:48)
[2021-08-15] MEDS ORDERED: IOPAMIDOL 370 MG/ML 100 ML INFUS..BTL INJ ONE (21:51)
[2021-08-15 21:55] LABS: CLARITY,URINE CLEAR (CLEAR); COLOR,URINE YELLOW (YELLOW); KETONES,URINE NEGATIVE (NEGATIVE); LEUKOCYTE ESTERASE ,URINE NEGATIVE (NEGATIVE); NITRITE,URINE NEGATIVE (NEGATIVE); PROTEIN,URINE DIPSTICK NEGATIVE (NEGATIVE)
[2021-08-15 21:56] LABS: URINE UROBILINOGEN 0.2 mg/dL (0.2 - 1)
[2021-08-15 22:07] LABS: BACTERIA,URINE FEW /HPF; EPITHELIAL CELLS,URINE FEW /LPF; MUCUS,URINE MANY (RARE); RBC,URINE 0-5 /HPF (0-5); WBC,URINE (MAN) 0-5 /HPF (0-5)
[2021-08-15] MEDS ORDERED: ACETAMINOPHEN-1 EAC4 PO (23:17)
[2021-08-15] MEDS ORDERED: ONDANSETRON ODT4 MG PO (23:18)
== END 2021-08-15 23:24 | disposition home or self-care (01) ==
LOC: ER 20:13
DX: R07.89 Other chest pain (principal); R10.12 Left upper quadrant pain; E11.65 Type 2 diabetes mellitus with hyperglycemia; I10 Essential (primary) hypertension; E78.5 Hyperlipidemia, unspecified; M54.9 Dorsalgia, unspecified; G89.29 Other chronic pain; Z85.05 Personal history of malignant neoplasm of liver; Z86.711 Personal history of pulmonary embolism
CPT/HCPCS: 36415; 71260; 74177; 80053; 81001; 83690; 85025; 93005; 99284; J1885; J7030; Q9967

== ENCOUNTER 2021-08-24 22:48 | Emergency (ER) | payer BC ==
[~2021-08-24] VITALS: Ht 172.7 cm; Wt 104.3 kg
[~2021-08-24 22:48] MED LIST changes: +ACETAMINOPHEN-1 EAC4 PO; +ONDANSETRON ODT4 MG PO
[2021-08-24 23:39] LABS: BASOPHILS % 0.3 % (0.0-1.0); EOSINOPHILS # (AUTO) 0.1 (0.0-0.4); EOSINOPHILS % 1.3 % (0.0-6.0); HEMATOCRIT 47.6 % (38.2-49.6); HEMOGLOBIN 15.7 g/dL (14.0-18.0); LYMPHOCYTES # (AUTO) 1.3 (1.0-3.2); LYMPHOCYTES % 17.9 % (18.0-39.1); MEAN CORPUSCULAR HEMOGLOBIN 30.3 pg (28-32); MEAN CORPUSCULAR VOLUME 91.7 fL (81-99); MONOCYTES # (AUTO) 0.6 (0.2-0.8); MONOCYTES % 7.8 % (4.4-11.3); NEUTROPHILS # (AUTO) 5.3 (2.1-6.9); NEUTROPHILS % 72.2 % (38.7-80.0); PLATELET COUNT 248 x10e3/uL (140-360); RED BLOOD COUNT 5.19 x10e6/uL (4.3-5.7); RED CELL DISTRIBUTION WIDTH 13.6 % (11.7-14.4)
[2021-08-24] MEDS ORDERED: Morphine 4mg Syringe 4 MG/ML INJ IV STA (23:45)
[2021-08-24] MEDS ORDERED: ONDANSETRON HCL INJ 2MG/ML 2ML 2 MG/ML VIAL IV STA (23:53)
[2021-08-24 23:57] LABS: ALBUMIN 3.5 g/dL (3.5-5.0); ALBUMIN/GLOBULIN RATIO 0.9 (0.8-2.0); ANION GAP 15.5 mmol/L (8-16); CALCIUM 8.7 mg/dL (8.4-10.2); CREATININE, SERUM 1.51 mg/dL (0.72-1.25); POTASSIUM 3.5 mmol/L (3.5-5.1)
[2021-08-25 00:03] LABS: CREATINE KINASE MB 1.4 ng/mL (0-5.0)
[2021-08-25] MEDS ORDERED: ONDANSETRON HCL INJ 2MG/ML 2ML 2 MG/ML VIAL ONE (00:08)
[2021-08-25 00:57] LABS: CLARITY,URINE CLEAR (CLEAR); COLOR,URINE YELLOW (YELLOW); LEUKOCYTE ESTERASE ,URINE NEGATIVE (NEGATIVE); NITRITE,URINE NEGATIVE (NEGATIVE); PROTEIN,URINE DIPSTICK NEGATIVE (NEGATIVE)
[2021-08-25 00:58] LABS: KETONES,URINE NEGATIVE (NEGATIVE); URINE UROBILINOGEN 0.2 mg/dL (0.2 - 1)
[2021-08-25 01:04] LABS: BACTERIA,URINE FEW /HPF; EPITHELIAL CELLS,URINE FEW /LPF; RBC,URINE 0-5 /HPF (0-5); WBC,URINE (MAN) 0-5 /HPF (0-5)
[2021-08-25] MEDS ORDERED: PEPCID20 MG PO (01:56)
[2021-08-25] MEDS ORDERED: ONDANSETRON ODT4 MG PO (01:56)
[2021-08-25] MEDS ORDERED: FAMOTIDINE 20 MG/2 ML VIAL IV STA (02:03)
[2021-08-25 02:36] VITALS: BP 145/91
[2021-08-25] MEDS ORDERED: IOPAMIDOL 370 MG/ML 100 ML INFUS..BTL INJ ONE (06:06)
== END 2021-08-25 02:30 | disposition home or self-care (01) ==
LOC: ER 22:52
DX: R10.30 Lower abdominal pain, unspecified (principal); R11.2 Nausea with vomiting, unspecified; K57.30 Diverticulosis of large intestine without perforation or abscess without bleeding
CPT/HCPCS: 36415; 71045; 74177; 80053; 81001; 82550; 82553; 83690; 84484; 85025; 93005; 99284; J2270; J2405; Q9967

== ENCOUNTER → 2021-11-10 | Day surgery (SDC) | payer BC ==
[2021-11-08 08:06] LABS: ALBUMIN/GLOBULIN RATIO 1.1 (0.8-2.0); ANION GAP 13.7 mmol/L (8-16); CALCIUM 8.8 mg/dL (8.4-10.2); CREATININE, SERUM 1.94 mg/dL (0.72-1.25); POTASSIUM 3.7 mmol/L (3.5-5.1)
[~2021-11-10] MED LIST changes: +ACTOS15 MG PO; +CARAFATE1 GM/10 ML PO; +CYCLOBENZAPRINE10 MG PO; +DONNATAL/LIDOCAINE/MAALOX 30 ML SUSP PO ONE; +FENOFIBRATE145 M1 PO; +FENTANYL CITRATE/PF 100MCG/2 ML INJ ONE; +FLOMAX0.4 MG PO; +LIDOCAINE HCL 2% LOCAL INJ 5 ML SDV VIAL INJ ONE; +LYRICA150 MG PO; +METOCLOPRAMIDE HCL 10 MG/2ML VIAL ONE; +MIDAZOLAM HCL 2 MG/2 ML VIAL ONE; +MOVANTIK25 MG PO; +PANTOPRAZOLE SO40 MG PO; +PEPCID20 MG PO; +PROPOFOL IV EMULSION 10 MG/ML 20 ML VIAL ONE; +TRAZODONE HCL100 MG PO; +[UNRECOGNIZED DRUG - OTHER]
[2021-11-10 11:23] VITALS: BP 109/73
== END | disposition home or self-care (01) ==
LOC: OR 12:23
PROVIDERS: ATTEND Internal Medicine Gastroenterology
DX: K20.90 Esophagitis, unspecified without bleeding (principal); K25.9 Gastric ulcer, unspecified as acute or chronic, without hemorrhage or perforation; K29.70 Gastritis, unspecified, without bleeding; T18.2XXA Foreign body in stomach, initial encounter; K44.9 Diaphragmatic hernia without obstruction or gangrene; C22.8 Malignant neoplasm of liver, primary, unspecified as to type; E11.9 Type 2 diabetes mellitus without complications; E78.5 Hyperlipidemia, unspecified; I10 Essential (primary) hypertension; Z09 Encounter for follow-up examination after completed treatment for conditions other than malignant neoplasm; Z86.711 Personal history of pulmonary embolism; Z79.84 Long term (current) use of oral hypoglycemic drugs; Z01.812 Encounter for preprocedural laboratory examination; Z20.822 Contact with and (suspected) exposure to COVID-19
CPT/HCPCS: 0223U; 36415 ×2; 43239; 80053; 82948; C9113; J2001; J2250; J2704; J2765; J3010

== ENCOUNTER → 2021-11-16 | Day surgery (SDC) | payer BC ==
[~2021-11-16] MED LIST changes: -DONNATAL/LIDOCAINE/MAALOX 30 ML SUSP PO ONE; +DONNATAL/LIDOCAINE/MAALOX 30 ML SUSP PO SCH; -FENTANYL CITRATE/PF 100MCG/2 ML INJ ONE; -LIDOCAINE HCL 2% LOCAL INJ 5 ML SDV VIAL INJ ONE; -METOCLOPRAMIDE HCL 10 MG/2ML VIAL ONE; -MIDAZOLAM HCL 2 MG/2 ML VIAL ONE; -PROPOFOL IV EMULSION 10 MG/ML 20 ML VIAL ONE
[2021-11-16 13:00] VITALS: BP 108/76
== END | disposition home or self-care (01) ==
LOC: ENDO 09:21
PROVIDERS: ATTEND Internal Medicine Gastroenterology
DX: K20.90 Esophagitis, unspecified without bleeding (principal); K29.70 Gastritis, unspecified, without bleeding; K25.9 Gastric ulcer, unspecified as acute or chronic, without hemorrhage or perforation; K31.89 Other diseases of stomach and duodenum; Z71.3 Dietary counseling and surveillance; C22.9 Malignant neoplasm of liver, not specified as primary or secondary; I10 Essential (primary) hypertension; E11.9 Type 2 diabetes mellitus without complications; Z20.822 Contact with and (suspected) exposure to COVID-19; Z79.84 Long term (current) use of oral hypoglycemic drugs; Z79.899 Other long term (current) drug therapy; Z68.33 Body mass index [BMI] 33.0-33.9, adult; Z87.19 Personal history of other diseases of the digestive system
CPT/HCPCS: 0223U; 36415; 43245; 43450; 82948; C9113